=== PATIENT | male | born 1945 | race Caucasian/White ===

== ENCOUNTER → 2017-03-11 | Outpatient (CLI) | payer MEDICARE, BC ==
--- NOTE | ~2017-03-11 | US37 ---
[facility] A Service of [facility] RADIOLOGY TEXT RESULTS PATIENT: YOSVANY KEENE LOCATION: CNIV : 43 UNIT #: [id number] AGE: [address]: Annamaria Castañeda MD SEX: M ORDER DR: [id number] [facility] [address]. [place], [place] [address] [id number] O MR#: [id number] Acc #: [id number] NAME: YOSVANY KEENE : 1945 SEX: M STUDY DATE/TIME: 03/11/2017 12:43 UNIT: CNIV ROOM: STUDY DESCRIPTION: US Carotid W/Doppler Bilateral Attending Physician: Annamaria Castañeda M.D. Referring Physician: Annamaria Castañeda M.D. Ordering Physician: Annamaria Castañeda M.D. Primary Care Physician: Annamaria Castañeda M.D. MEDICAL IMAGING REPORT This report is preliminary unless electronic signature is present EXAM Bilateral carotid duplex. HISTORY Lightheadedness. FINDINGS Duplex imaging of the carotid arteries was performed. The right common, internal, and external carotid arteries are widely patent with no plaque or stenosis. Velocity in the right common carotid artery is 16, internal is 41, and external is 77 cm/sec. Right ICA:CCA ratio is 1.0. On the left side, the common, internal, and external carotid arteries are patent with minimal plaque in the internal carotid arteries. Velocity in the left common carotid is 64, internal is 52, and external is 83 cm/sec. Left ICA:CCA ratio is 1.1. Antegrade flow is seen in the right and left vertebral arteries. IMPRESSION The right internal carotid artery is normal. Minimal plaque is seen in the left internal carotid artery. Antegrade flow is seen in the right and left vertebral arteries. No hemodynamically significant stenosis is seen bilaterally. Dictated by.Patricia Proctor M.D. THIS IS AN ELECTRONICALLY VERIFIED REPORT [facility] A Service of [facility] RADIOLOGY TEXT RESULTS PATIENT: YOSVANY KEENE LOCATION: CNIV : 44 UNIT #: [id number] AGE: [address]: Annamaria Castañeda MD SEX: M ORDER DR: Benigno Proctor M.D. at 03/15/2017 4:04 PM Josseline TD: 03/11/2017 18:31 JOB #: [id number] MEDICAL IMAGING REPORT Page 1 of 1 COPY
== END | disposition home or self-care (01) ==
LOC: CNIV 12:14
DX: R42 Dizziness and giddiness (principal)
CPT/HCPCS: 93880